=== PATIENT | female | born 1970 | race Two or more races ===

== ENCOUNTER → 2016-04-29 | Outpatient (CLI) | payer OTHER ==
--- NOTE | 2016-04-30 04:11 | HKNOTE ---
DATE OF SERVICE: 04/29/2016 INTERVAL HISTORY: The patient presents today for a followup on her left knee. She is now approxima tely 10 days status post left knee arthroscopy and partial medial meniscectomy. She is doing well o verall. She is having some mild discomfort but is ambulatory today. The swelling is improving. Th ere is no drainage from the incision site. Sutures are in place. She presents today for her first postoperative evaluation. PHYSICAL EXAMINATION: On examination today, she is alert and oriented x4, in no acute distress. Sh e is ambulatory today. Suture are in place. Incisions are clean, dry, and well-healing. Knee rang e of motion is 3-120 degrees. Varus and valgus forces are stable. Compartments are soft. She is n eurovascularly intact distally. IMAGING: None. ASSESSMENT: 10 days status post left knee arthroscopy and medial meniscectomy, doing well. PLAN: 1. Begin physical therapy. Sutures were removed today, Steri-Strips applied. 2. Gradually increase physical activity. 3. Follow up in 4 weeks. Dictated By: NAMITA TARANGO for WILLARD KHAN/KEON Conf#: [id number] DID#: [id number]
== END | disposition home or self-care (01) ==
LOC: HKI 13:55
PROVIDERS: ATTEND Orthopaedic Surgery
DX: S83.242D Other tear of medial meniscus, current injury, left knee, subsequent encounter (principal); X58.XXXD Exposure to other specified factors, subsequent encounter
CPT/HCPCS: G0463

== ENCOUNTER → 2016-05-31 | Outpatient (CLI) | payer OTHER | END | disposition home or self-care (01) | LOC: HKI 13:35 | PROVIDERS: ATTEND Orthopaedic Surgery | DX: S83.232D Complex tear of medial meniscus, current injury, left knee, subsequent encounter (principal); X58.XXXD Exposure to other specified factors, subsequent encounter | CPT/HCPCS: G0463 ==